=== PATIENT | male | born 1960 | race Caucasian/White ===

== ENCOUNTER 2017-07-30 07:16 | Emergency (ER) | payer OTHER ==
--- NOTE | 2017-07-30 07:32 | CPEKG ---
Heart Rate: 109 RR Interval: 550 P-R Interval: 160 QRSD Interval: 84 QT Interval: 348 QTC Interval: 469 P [place]: 24 QRS [place]: 26 T Wave [place]: 58 EKG Severity - OTHERWISE NORMAL ECG - EKG Impression: SINUS TACHYCARDIA Electronically Signed By: Davie Nicole 30-Jul-2017 13:31:42
[2017-07-30 07:39] VITALS: RESP 18
--- NOTE | 2017-07-30 08:00 | EDPHY ---
H & P Stated Complaint: dizzyness, SOB, palpatations Time Seen by Provider: 07/30/17 07:36 - Personal History Current Tetanus/Diphtheria Vaccine: Yes Current Tetanus Diphtheria and Acellular Pertussis (TDAP): Yes - Medical/Surgical History Hx Asthma: No Hx Chronic Respiratory Disease: No Hx Diabetes: Yes Hx Cardiac Disease: Yes Hx Renal Disease: No Hx Cirrhosis: No Hx Alcoholism: No Hx HIV/AIDS: No Hx Splenectomy or Spleen Trauma: No Other PMH: HTN, DM, prostatehypertropy, backinjury, - Social History Smoking Status: Never smoked Constitutional: Initial Vital Signs Temperature (C) 37.4 C 07/30/17 07:16 Heart Rate 108 H 07/30/17 07:16 Respiratory Rate 18 07/30/17 07:16 Blood Pressure 133/81 H 07/30/17 07:16 O2 Sat (%) 93 07/30/17 07:16 O2 Delivery Mode Room Air Allergies/Adverse Reactions: No Known Allergies Allergy (Unverified 07/30/17 07:29) Home Medications: Medication Instructions Recorded Actos 07/30/17 Atenolol 07/30/17 Finasteride 07/30/17 Glyburide 07/30/17 Lisinopril/Hctz 20/12.5MG 07/30/17 Mayb 07/30/17 Metformin HCl 07/30/17 Pioglitazone HCl 07/30/17 Pravastatin Sodium 07/30/17 Tamsulosin HCl 07/30/17 amLODIPine BESYLATE 07/30/17 Medical Decision Making ED Course/Re-evaluation: CHIEF COMPLAINT: Lightheaded HISTORY OF PRESENT ILLNESS: The patient is a 57 y/o male with a history of diabetes, hypertension, and recent back injury complaining of lightheadedness this morning. He has recently been off work with a back injury. Last night he had difficulty sleeping with alternating chills and hot flashes. This morning upon walking to work he felt lightheaded and clammy. He denies chest pain, dyspnea different from baseline, cough, abdominal pain, vomiting, fever, diarrhea, acute trauma, or recent illness. His symptoms have completely resolved upon arrival here. He notes he has not taken his home medications yet today. REVIEW OF SYSTEMS: A 10 point review of systems was performed and is negative with the exception of the elements mentioned in the history of present illness. PHYSICAL EXAM: HR, BP, O2 Sat, RR. Temp noted General Appearance: Alert, well hydrated, appropriate, and non-toxic appearing. Obese. Head: Atraumatic without scalp tenderness or obvious injury Eyes: Pupils equal, round, reactive to light and accommodation, EOMI, no trauma , no injection. Nose: Atraumatic, no rhinorrhea, clear. Throat: Mucus membranes moist. Neck: Supple, non-tender, no lymphadenopathy. Respiratory: No retractions, no distress, no wheezes, and no accessory muscle use. Lungs are clear to auscultation bilaterally. Cardiovascular: Regular rate and rhythm, no murmurs, rubs, or gallops. Good capillary refill all extremities. Gastrointestinal: Abdomen is soft, non-tender, non-distended, no masses, no rebound, no guarding, no peritoneal signs. Musculoskeletal: Normal active ROM of all extremities, atraumatic. Neurological: Alert, appropriate, and interactive. The patient has non-focal cranial nerves, motor, sensory, and cerebellar exam. Skin: No rashes, good turgor, no nodules on palpation. PAST MEDICAL HISTORY: Diabetes, obesity, BPH, back injury, hypertension PAST SURGICAL HISTORY: Noncontributory SOCIAL HISTORY: Employed. . DIAGNOSTICS/PROCEDURES/CRITICAL CARE TIME: The 12 lead EKG was interpreted by myself. Sinus tachycardia. See hard copy and/ or "tracemaster" electronic copy for interpretation. DIFFERENTIAL DIAGNOSIS: The differential diagnosis for the patient's symptoms included but was not limited to pneumonia, urinary tract infection, viral syndrome, meningitis, and sepsis. MEDICAL DECISION MAKING: This is an obese 57 y/o male with diabetes and hypertension who presents with now-resolved lightheadedness upon walking into work this morning. His exam is unremarkable. Presentation seems consistent with viral syndrome or general malaise after a night of poor sleep. He has no acute infectious symptoms upon assessment here. Plan for IV, labs, EKG. WBC elevated, otherwise work up is unremarkable. Reevaluated patient and discussed findings. He will be discharged home with standard care and follow up instructions. He is comfortable with this plan. Return precautions discussed. - Data Points Laboratory Results: Laboratory Results 07/30/17 07:20 07/30/17 07:20 07/30/17 07/30/17 07/30/17 07:29 07:20 07:20 WBC 14.73 10^3/uL H 10^3/uL (3.80-9.50) RBC 4.62 10^6/uL 10^6/uL (4.40-6.38) Hgb 15.4 g/dL g/dL (13.7-17.5) POC Hgb 16.0 gm/dL gm/dL (13.7-17.5) Hct 46.1 % % (40.0-51.0) POC Hct 47 % % (40-51) MCV 99.8 fL fL (81.5-99.8) MCH 33.3 pg pg (27.9-34.1) MCHC 33.4 g/dL g/dL (32.4-36.7) RDW 13.0 % % (11.5-15.2) Plt Count 157 10^3/uL 10^3/uL (150-400) MPV 10.9 fL fL (8.7-11.7) Neut % (Auto) 85.1 % H % (39.3-74.2) Lymph % (Auto) 4.7 % L % (15.0-45.0) [place] % (Auto) 9.2 % % (4.5-13.0) Eos % (Auto) 0.2 % L % (0.6-7.6) Baso % (Auto) 0.4 % % (0.3-1.7) Nucleat RBC Rel Count 0.0 % % (0.0-0.2) Absolute Neuts (auto) 12.54 10^3/uL H 10^3/uL (1.70-6.50) Absolute Lymphs (auto) 0.69 10^3/uL L 10^3/uL (1.00-3.00) Absolute Monos (auto) 1.35 10^3/uL H 10^3/uL (0.30-0.80) Absolute Eos (auto) 0.03 10^3/uL 10^3/uL (0.03-0.40) Absolute Basos (auto) 0.06 10^3/uL 10^3/uL (0.02-0.10) Absolute Nucleated RBC 0.00 10^3/uL 10^3/uL (0-0.01) Immature Gran % 0.4 % % (0.0-1.1) Immature Gran # 0.06 10^3/uL 10^3/uL (0.00-0.10) POC Sodium 138 mEq/L mEq/L (135-145) Sodium 137 mEq/L mEq/L (135-145) POC Potassium 5.0 mEq/L mEq/L (3.3-5.0) Potassium 5.0 mEq/L mEq/L (3.5-5.2) POC Chloride 99 mEq/L mEq/L (97-110) Chloride 100 mEq/L mEq/L (97-110) Carbon Dioxide 22 mEq/l mEq/l (22-31) Anion Gap 15 mEq/L mEq/L (8-16) POC BUN 14 mg/dL mg/dL (7-23) BUN 12 mg/dL mg/dL (7-23) Creatinine 0.8 mg/dL mg/dL (0.7-1.3) POC Creatinine 0.8 mg/dL mg/dL (0.7-1.3) Estimated GFR > 60 Glucose 272 mg/dL H mg/dL (70-100) POC Glucose 310 mg/dL H mg/dL (70-100) Calcium 9.1 mg/dL mg/dL (8.5-10.4) Troponin I < 0.012 ng/mL ng/mL (0.000-0.034) Point of Care Test Results: 07/30/17 07:29 POC Sodium 138 POC Potassium 5.0 POC Chloride 99 POC BUN 14 POC Creatinine 0.8 POC Glucose 310 H Departure - Departure Disposition: Home, Routine, Self-Care Clinical Impression: Viral syndrome Condition: Good Instructions: Viral Syndrome (ED) Additional Instructions: 1. Use Tylenol or ibuprofen as directed as needed for pain or fever over the next few days. 2. Follow up with your primary care provider as needed for unimproved symptoms over the next 2-3 days. 3. Return to the ED for worsening of condition. 4. Follow up with your workman's comp as directed by your HR department. Adult Pain & Fever Control: We recommend Acetaminophen (Tylenol) and Ibuprofen (Motrin,Advil) for pain and fever control. When fever is high or pain severe, both drugs can be used at the same time, but at different intervals. Please note the time differences. Your dose is: Acetaminophen 650mg every 4 to 6 hours Ibuprofen 600mg every 6-8 hours with food Note: do not take Acetaminophen with Hydrocodone (Vicodin, Lortab) or Oxycodone (Percocet). These medications also contain Acetaminophen. No more than 3000mg of Acetaminophen should be taken in 24 hours (for an adult). Referrals: Patient,NotPresent [Primary Care Provider] - As per Instructions Quintin Lou MD [[facility] [place] Primary Care Provider] - As per Instructions Stand Alone Forms: Work Excuse Report Scribed for: Davie Nicole Report Scribed by: Parul Avila Date of Report: 07/30/17 Time of Report: 08:22
[2017-07-30 08:07] LABS: PLATELET COUNT 157 10^3/uL (150-400)
[2017-07-30 08:55] VITALS: BP 136/89; PULSE 100; TEMP 99.7; O2SAT 94
== END 2017-07-30 09:03 | disposition home or self-care (01) ==
LOC: EDUNIT#
DX: B34.9 Viral infection, unspecified (principal); I10 Essential (primary) hypertension; E11.9 Type 2 diabetes mellitus without complications; Z79.84 Long term (current) use of oral hypoglycemic drugs
CPT/HCPCS: 82947-QW